=== PATIENT | female | born 1990 | race Hispanic/Latino ===

== ENCOUNTER 2021-09-08 13:35 | Emergency (ER) | payer SELFPAY ==
[2021-09-08] MEDS ORDERED: HYDROcodone/Acetaminophen 10/325 mg Tablet ONE (13:53)
[2021-09-08] MEDS ORDERED: Ondansetron ODT 4 MG TAB ONE (13:54)
[2021-09-08] MEDS ORDERED: Doxycycline 100 MG CAP ONE (13:54)
[2021-09-08] MEDS ORDERED: Lidocaine 2% w/Epinephrine 1:200K 20 ML VIAL ONE (13:54)
== END 2021-09-08 14:50 | disposition home or self-care (01) ==
LOC: BURERS 13:35
DX: L02.413 Cutaneous abscess of right upper limb (principal); D64.9 Anemia, unspecified; Z79.899 Other long term (current) drug therapy
CPT/HCPCS: 10060; Q0162